=== PATIENT | male | born 1970 | race Caucasian/White ===

== ENCOUNTER 2016-09-27 10:35 | Emergency (ER) | payer OTHER ==
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
[2016-09-27] MEDS ORDERED: TETRACAINE HCL 0.5% OPH SOLN 2 ML OS ONE (11:39)
[2016-09-27] MEDS ORDERED: ERYTHROMYCIN 0.5% OPH OINT 1 GM UNIT DOSE OS ONE (11:54)
[2016-09-27 12:09] VITALS: BP 116/72
== END 2016-09-27 12:16 | disposition home or self-care (01) ==
LOC: ER 10:35
DX: Z77.098 Contact with and (suspected) exposure to other hazardous, chiefly nonmedicinal, chemicals (principal); H53.8 Other visual disturbances; H57.8 Other specified disorders of eye and adnexa
CPT/HCPCS: 99283

== ENCOUNTER 2016-12-26 15:42 | Emergency (ER) | payer OTHER ==
--- NOTE | 2016-12-26 16:14 | ER Document Report ---
HPI - HPI Patient complains to provider of: Rt hand puncture wound by screwdriver Pain Level: 4 Notes: Patient is a 46-year-old male presents the ED complaining of a puncture wound/ injury between his third and fourth digit of his right hand that happened just prior to arrival while he was at work. Patient states that Rivera head screwdriver slipped and punctured in that area. He does have some soreness and he did have some bleeding initially. Patient states that he does also have some swelling with a little bit of tingling in the fourth distal digit, but he is still able to move his hands and fingers through his full range of motion and states that his strength is still intact. While at work he did clean it out with iodine. The pain does not radiate. He has not noticed any other discharge since having gauze over top of it. Patient denies any medicine allergies. He does take Celexa, Celebrex, trazodone daily. No other significant past medical history. Denies any fever, URI, chest pain, palpitations, shortness of breath, dyspnea, abdominal pain, nausea/vomiting, dysuria, muscle weakness/paralysis, rash. Patient states his last tetanus was most likely over 5 years ago. - ROS Notes: REVIEW OF SYSTEMS: CONSTITUTIONAL : Denies fever, chills, or sweats. Denies recent illness. CARDIOVASCULAR: Denies chest pain. Denies palpitations or racing or irregular heart beat. Denies ankle edema. RESPIRATORY: Denies cough, cold, or chest congestion. Denies shortness of breath, difficulty breathing, or wheezing. GASTROINTESTINAL: Denies abdominal pain or distention. Denies nausea, vomiting , or diarrhea. Denies blood in vomitus, stools, or per rectum. Denies black, tarry stools. Denies constipation. MUSCULOSKELETAL: see hpi SKIN: see hpi NEUROLOGICAL: see hpi ALL OTHER SYSTEMS REVIEWED AND NEGATIVE. Dictation was performed using [employer] voice recognition software - DERM Skin Color: Normal Past Medical History - Social History Smoking Status: Unknown if Ever Smoked Family History: Reviewed & Not Pertinent Patient has suicidal ideation: No Patient has homicidal ideation: No Renal/ Medical History: Denies: Hx Peritoneal Dialysis Musculoskeltal Medical History: Reports Hx Arthritis Psychiatric Medical History: Reports: Hx Post Traumatic Stress Disorder - Immunizations Hx Diphtheria, Pertussis, Tetanus Vaccination: Yes Vertical Provider Document - CONSTITUTIONAL Notes: PHYSICAL EXAMINATION: GENERAL: Well-appearing, well-nourished and in no acute distress. LUNGS: Breath sounds clear to auscultation bilaterally and equal. No wheezes rales or rhonchi. HEART: Regular rate and rhythm without murmurs, rubs, gallops. Musculoskeletal: Rt hand/fingers: FROM to passive/active. Strength 5+/5. No tendon compromise. Extremities: No cyanosis, clubbing, or edema b/l. Peripheral pulses 2+. Capillary refill less than 3 seconds. NEUROLOGICAL: Normal sensory, motor exams to the rt hand/fingers and distal to site of puncture. PSYCH: Normal mood, normal affect. SKIN: + puncture wound noted b/w the 3-4th digits approx 0.3-4mm without active bleeding. There is a small piece of skin that will need debrided. - INFECTION CONTROL TRAVEL OUTSIDE OF THE [place] IN LAST 30 DAYS: No - RESPIRATORY O2 Sat by Pulse Oximetry: 98 Course - Re-evaluation Re-evalutation: 12/26/16 16:32 Pt is an afebrile, well-hydrated, 46yo male who presents with a puncture wound while at work with a allyn head screwdriver b/w the 3-4th digits moving proximally/superiorly. Wound was thoroughly irrigated with 40ml saline, shurclens, ETOH pads, and small piece of skin was debrided. XR did not show any foreign body. I will leave open to heal from the inside-out. Wound dressing placed. I will cover him with Augmentin 875/125mg PO BID x7 days. Recheck with PCM in 2-3 days for a recheck. Consider consult with Hand- specialist and/or Ortho with ongoing/worsening symptoms. Return to the ED with any worsening symptoms otherwise as reviewed in discharge. Pt in agreement. - Vital Signs Vital signs: Temp Pulse Resp BP Pulse Ox 98.1 F 53 L 22 H 116/81 98 12/26/16 15:49 12/26/16 15:49 12/26/16 15:49 12/26/16 15:49 12/26/16 15:49 Discharge - Discharge Clinical Impression: Puncture wound Condition: Stable Disposition: HOME, SELF-CARE Additional Instructions: Maintain fluid intake No submersion under water of any kind until wound fully healed Take medications as directed for full dose Keep the wound clean Use bacitracin for the first 2 days, then may leave open to the air Keep the wound covered until drainage stops, then may leave open to air Soap and water to wash the wound Tylenol/ibuprofen as needed Recheck with PCM in 2-3 days for a recheck Consider consult with hand specialist/Orthopedics with ongoing worsening symptoms Return to the ED with any worsening symptoms and/or development of fever, headache, chest pain, palpitations, syncope, shortness of breath, trouble breathing, abdominal pain, n/v/d, blood in stool/urine, urinary retention, muscle weakness/paralysis, abscess, red streaks, purulent discharge, numbness/ tingling, or other worsening symptoms that are concerning to you. Prescriptions: Amox Tr/Potassium Clavulanate [Augmentin 875-125 Tablet] 1 tab PO BID #14 tablet Forms: Return to Work Referrals: NIKKY WALKER DO [ACTIVE STAFF] - Follow up as needed [facility] [Provider Group] - Follow up as needed
[2016-12-26] MEDS ORDERED: DIPH/PERTUSS(ACELL)/TETANUS VAC/PF 0.5 ML SYR (>=10YO) IM ONE (16:33)
--- NOTE | 2016-12-26 17:07 | RADIOLOGY REPORT (SQ) ---
EXAM DESCRIPTION: HAND RIGHT 3 VIEWS COMPLETED DATE/TIME: 12/26/2016 4:59 pm REASON FOR STUDY: R/o foreign body b/w 3-4th digits COMPARISON: None. EXAM PARAMETERS: NUMBER OF VIEWS: Three views. TECHNIQUE: AP, lateral and oblique radiographic images acquired of the right hand. LIMITATIONS: None. FINDINGS: MINERALIZATION: Normal. BONES: No acute fracture or dislocation. No worrisome bone lesions. JOINTS: No effusions. SOFT TISSUES: There is a soft tissue injury in the web between the 3rd and 4th digits. OTHER: No other significant finding. IMPRESSION: There is no acute osseous abnormality. TECHNICAL DOCUMENTATION: JOB ID: [id number] [employer]- All Rights Reserved
[2016-12-26 17:29] VITALS: BP 120/81
== END 2016-12-26 17:30 | disposition home or self-care (01) ==
LOC: ER 15:42
DX: S61.431A Puncture wound without foreign body of right hand, initial encounter (principal); W27.0XXA Contact with workbench tool, initial encounter; Y99.0 Civilian activity done for income or pay; R20.2 Paresthesia of skin
CPT/HCPCS: 90471; 90715; 99283